=== PATIENT | female | born 1955 | race African-American/Black ===

== ENCOUNTER 2019-12-18 14:08 | Emergency (ER) | payer MEDICARE ==
[~2019-12-18] VITALS: Ht 157.5 cm; Wt 79.5 kg
[2019-12-18 14:20] VITALS: BP 229/106; Ht 157.5 cm; Wt 79.5 kg
== END 2019-12-18 15:04 | disposition home or self-care (01) ==
LOC: D.ER 14:08
DX: M79.18 Myalgia, other site (principal); W01.10XA Fall on same level from slipping, tripping and stumbling with subsequent striking against unspecified object, initial encounter; Y93.9 Activity, unspecified; Y92.9 Unspecified place or not applicable; Y99.0 Civilian activity done for income or pay